=== PATIENT | female | born 1970 | race Caucasian/White ===

== ENCOUNTER → 2016-05-22 | Outpatient (CLI) | payer MEDICARE ==
--- NOTE | 2016-05-30 17:50 | WOMENS IMAGING REPORT ---
EXAM DESCRIPTION: BILAT DIAGNOSTIC MAMMO W/CAD; U/S BREAST UNILAT LIMITED COMPLETED DATE/TIME: 05/22/2016 10:15 am; 05/22/2016 11:10 am REASON FOR STUDY: N60.12, DIFUSE CYSTIC MASTOPATHY OF LEFT BREAST; LT BREAST PAIN N60.12 DIFFUSE CY STIC MASTOPATHY OF LEFT BREAST COMPARISON: Mammograms 02/22/2015 Breast ultrasound exams 02/12/2015, 08/20/2015 TECHNIQUE: Standard craniocaudal and mediolateral oblique views of each breast recorded using digita l acquisition. Left breast ultrasound was also performed LIMITATIONS: None. FINDINGS: Findings present which are benign by mammographic criteria. No suspicious masses, calcifi cations or architectural distortion. Scattered benign calcifications bilaterally Read with the assistance of CAD. [facility] - R2 Remedy Developer Version 9.2 Left breast ultrasound: Ultrasound of the left breast was performed. There are benign well-circumscribed anechoic cysts in t he left breast at the 12 o'clock position 15 mm in size, and in the left breast 3 o'clock 6 mm in siz e. These correlate with areas of breast pain. BREAST DENSITY: d. The breasts are extremely dense, which lowers the sensitivity of mammography. BIRAD: 2 BENIGN FINDING(S) RECOMMENDATION: ROUTINE SCREENING Please continue bilateral screening tomosynthesis given extremely dense fibroglandular tissue bilater ally. COMMENT: PATIENT NOTIFIED BY LETTER The [employer] recommends an annual screening mammogram for women aged 40 years or over. Each patient will receive a reminder prior to the anniversary date of her mammogram. The [employer] (ACR) has developed recommendations for screening MRI of the breast s in certain patient populations, to be used in conjunction with mammography. Breast MRI surveillanc e may be appropriate for women with more than 20% lifetime risk of developing breast cancer as deter mined by genetic testing, significant family history of the disease, or history of mantle radiation f or Hodgkins Disease. ACR Practice Guidelines 2008. TECHNICAL DOCUMENTATION: FINDING NUMBER: (1) ASSESSMENT: (1) JOB ID: [id number] [employer]- All Rights Reserved
--- NOTE | 2016-05-30 17:50 | WOMENS IMAGING REPORT ---
EXAM DESCRIPTION: BILAT DIAGNOSTIC MAMMO W/CAD; U/S BREAST UNILAT LIMITED COMPLETED DATE/TIME: 05/22/2016 10:15 am; 05/22/2016 11:10 am REASON FOR STUDY: N60.12, DIFUSE CYSTIC MASTOPATHY OF LEFT BREAST; LT BREAST PAIN N60.12 DIFFUSE CY STIC MASTOPATHY OF LEFT BREAST COMPARISON: Mammograms 02/22/2015 Breast ultrasound exams 02/12/2015, 08/20/2015 TECHNIQUE: Standard craniocaudal and mediolateral oblique views of each breast recorded using digita l acquisition. Left breast ultrasound was also performed LIMITATIONS: None. FINDINGS: Findings present which are benign by mammographic criteria. No suspicious masses, calcifi cations or architectural distortion. Scattered benign calcifications bilaterally Read with the assistance of CAD. [facility] - R2 Tugboat Dispatcher Version 9.2 Left breast ultrasound: Ultrasound of the left breast was performed. There are benign well-circumscribed anechoic cysts in t he left breast at the 12 o'clock position 15 mm in size, and in the left breast 3 o'clock 6 mm in siz e. These correlate with areas of breast pain. BREAST DENSITY: d. The breasts are extremely dense, which lowers the sensitivity of mammography. BIRAD: 2 BENIGN FINDING(S) RECOMMENDATION: ROUTINE SCREENING Please continue bilateral screening tomosynthesis given extremely dense fibroglandular tissue bilater ally. COMMENT: PATIENT NOTIFIED BY LETTER The [employer] recommends an annual screening mammogram for women aged 40 years or over. Each patient will receive a reminder prior to the anniversary date of her mammogram. The [employer] (ACR) has developed recommendations for screening MRI of the breast s in certain patient populations, to be used in conjunction with mammography. Breast MRI surveillanc e may be appropriate for women with more than 20% lifetime risk of developing breast cancer as deter mined by genetic testing, significant family history of the disease, or history of mantle radiation f or Hodgkins Disease. ACR Practice Guidelines 2008. TECHNICAL DOCUMENTATION: FINDING NUMBER: (1) ASSESSMENT: (1) JOB ID: [id number] [employer]- All Rights Reserved
== END ==
LOC: WI 15:41
PROVIDERS: ATTEND Physician Assistant Medical
DX: N60.12 Diffuse cystic mastopathy of left breast (principal)
CPT/HCPCS: 76642; G0204; 77066

== ENCOUNTER → 2016-08-24 | Outpatient (CLI) | payer MEDICARE ==
[2016-08-24 15:21] LABS: ABSOLUTE BASOPHILS # (AUTO) 0.1 10^3/uL (0.0-0.2); ABSOLUTE LYMPHOCYTES (AUTO) 1.8 10^3/uL (0.5-4.7); ABSOLUTE MONOCYTES (AUTO) 0.6 10^3/uL (0.1-1.4); ABSOLUTE NEUT (AUTO) 5.7 10^3/uL (1.7-8.2); BASOPHILS % (AUTO) 0.7 % (0-2); EOSINOPHILS % (AUTO) 0.6 % (0-6); HEMATOCRIT 39.3 % (36.0-47.0); HEMOGLOBIN 13.5 g/dL (12.0-15.5); HGB HCT DIFFERENCE 1.2; LYMPHOCYTES % (AUTO) 21.8 % (13-45); MEAN CORPUSCULAR HEMOGLOBIN 30.1 pg (27.0-33.4); MEAN CORPUSCULAR HGB CONC 34.2 g/dL (32.0-36.0); MEAN CORPUSCULAR VOLUME 88 fl (80-97); MONOCYTES % (AUTO) 6.8 % (3-13); RED BLOOD COUNT 4.47 10^6/uL (3.72-5.28); RED CELL DISTRIBUTION WIDTH 13.5 % (11.5-14.0); SEGMENTED NEUTROPHILS % (AUTO) 70.1 % (42-78); WHITE BLOOD COUNT 8.1 10^3/uL (4.0-10.5)
[2016-08-24 15:24] LABS: APPEARANCE,URINE SLIGHTLY-CLOUDY; BILIRUBIN,URINE NEGATIVE (NEGATIVE); GLUCOSE, URINE NEGATIVE (NEGATIVE); KETONES,URINE NEGATIVE (NEGATIVE); LEUKOCYTE ESTERASE,URINE NEGATIVE (NEGATIVE); NITRITE,URINE NEGATIVE (NEGATIVE); PROTEIN,URINE NEGATIVE (NEGATIVE); URINE SPECIFIC GRAVITY 1.006; UROBILINOGEN,URINE NEGATIVE mg/dL (<2.0)
[2016-08-24 15:28] LABS: PROTHROMBIN TIME 13.5 SEC (11.4-15.4)
[2016-08-24 15:29] LABS: PARTIAL THROMBOPLASTIN TIME 28.8 SEC (23.5-35.8)
== END ==
LOC: OD 14:28
PROVIDERS: ATTEND Pain Medicine Interventional Pain Medicine
DX: Z79.01 Long term (current) use of anticoagulants (principal); Z79.1 Long term (current) use of non-steroidal anti-inflammatories (NSAID)
CPT/HCPCS: 36415; 81001; 85025; 85610; 85730

== ENCOUNTER 2016-09-19 08:03 | Day surgery (SDC) | payer MEDICARE ==
[2016-09-15 12:13] LABS: HEMOGLOBIN 13.9 g/dL (12.0-15.5); HGB HCT DIFFERENCE 0.7; MEAN CORPUSCULAR HEMOGLOBIN 30.5 pg (27.0-33.4); MEAN CORPUSCULAR HGB CONC 33.8 g/dL (32.0-36.0); MEAN CORPUSCULAR VOLUME 90 fl (80-97); RED BLOOD COUNT 4.54 10^6/uL (3.72-5.28); WHITE BLOOD COUNT 5.5 10^3/uL (4.0-10.5)
[2016-09-15 12:17] LABS: PROTHROMBIN TIME 12.9 SEC (11.4-15.4)
[2016-09-15 13:33] LABS: APPEARANCE,URINE CLEAR; BILIRUBIN,URINE NEGATIVE (NEGATIVE); GLUCOSE, URINE NEGATIVE (NEGATIVE); KETONES,URINE NEGATIVE (NEGATIVE); LEUKOCYTE ESTERASE,URINE NEGATIVE (NEGATIVE); NITRITE,URINE NEGATIVE (NEGATIVE); PROTEIN,URINE NEGATIVE (NEGATIVE); URINE SPECIFIC GRAVITY 1.008; UROBILINOGEN,URINE NEGATIVE mg/dL (<2.0)
--- NOTE | 2016-09-15 13:46 | EKG REPORT ---
SEVERITY:- NORMAL ECG - SINUS RHYTHM : Confirmed by: Jerrica Ayoub 15-Sep-2016 13:45:10
[~2016-09-19 08:03] MED LIST: CEFAZOLIN 1 GM/D5W RTU 1 GM/50 ML RTUPB IV PRN; LACTATED RINGERS 1000 ML IV PRN; LIDOCAINE 0.5% INJ-PF (5 MG/ML) 50 ML SDV SUBCUT PRN
[2016-09-19] MEDS ORDERED: BUPIVACAINE HCL 0.25% /EPINEPHRINE INJ/PF 30 ML SDV ONE (08:26)
[2016-09-19] MEDS ORDERED: LIDOCAINE 1% INJ-PF (10 MG/ML) 30 ML SDV ONE ×2 (08:26→08:43)
[2016-09-19] MEDS ORDERED: SODIUM BICARBONATE 8.4% INJ 50 MEQ/50 ML DISP.SYRIN ONE (08:26)
[2016-09-19] MEDS ORDERED: FENTANYL CITRATE INJ/PF 100 MCG/2 ML AMPUL IV PRN ×3 (09:48)
[2016-09-19] MEDS ORDERED: MORPHINE SULFATE 10 MG/ML INJ IV PRN (09:48)
[2016-09-19] MEDS ORDERED: DIPHENHYDRAMINE HCL 50 MG/ML VIAL IV PRN (09:48)
[2016-09-19] MEDS ORDERED: OXYCODONE-ACETAMINOPHEN 5-325 MG TABLET PO PRN ×2 (09:48)
[2016-09-19] MEDS ORDERED: MEPERIDINE HCL/PF INJ 25 MG/1 ML DISP.SYRIN IV PRN (09:48)
[2016-09-19] MEDS ORDERED: PROMETHAZINE HCL INJ 25 MG/1 ML VIAL IV PRN ×2 (09:48)
[2016-09-19] MEDS ORDERED: MIDAZOLAM 2 MG/2 ML INJ ONE (10:25)
[2016-09-19] MEDS ORDERED: KETAMINE HCL INJ 500 MG/10 ML VIAL ONE (10:25)
[2016-09-19] MEDS ORDERED: PROPOFOL INJ 200 MG/20 ML VIAL IV ONE (10:26)
[2016-09-19] MEDS ORDERED: DEXMEDETOMIDINE INJ 80 MCG/20 ML VIAL IV ONE (10:26)
[2016-09-19] MEDS ORDERED: ACETAMINOPHEN 100 ML IV ONE (10:26)
[2016-09-19] MEDS ORDERED: MORPHINE SULFATE 10 MG/ML INJ ONE (10:27)
[2016-09-19] MEDS ORDERED: CEFAZOLIN INJ 1 GM VIAL ONE (12:11)
[2016-09-19] MEDS ORDERED: HYDROMORPHONE HCL 2 MG TABLET PO PRN (12:31)
[2016-09-19] MEDS ORDERED: ONDANSETRON HCL INJ/PF 4 MG/2 ML SDV IV PRN (12:32)
[2016-09-19] MEDS ORDERED: DEXAMETHASONE SOD PHOSPHATE INJ 4 MG/1 ML VIAL ONE (12:54)
[2016-09-19] MEDS ORDERED: METOCLOPRAMIDE HCL INJ/PF 10 MG/2 ML SDV ONE (12:54)
[2016-09-19] MEDS ORDERED: LIDOCAINE 2% INJ-PF (20 MG/ML) 10 ML AMPUL ONE (12:54)
[2016-09-19] MEDS ORDERED: ONDANSETRON HCL INJ/PF 4 MG/2 ML SDV ONE (12:54)
[2016-09-19] MEDS ORDERED: GLYCOPYRROLATE INJ 0.4 MG/2 ML VIAL ONE (12:54)
--- NOTE | 2016-09-19 13:03 | OPERATIVE REPORT E ---
Operative Report NAME: ROBIN FLOOD : 1970 AGE: 46Y DATE OF SURGERY: 09/19/2016 ROOM: PREOPERATIVE DIAGNOSIS: Lumbar radiculopathy. POSTOPERATIVE DIAGNOSIS: Lumbar radiculopathy. PROCEDURE PERFORMED: Permanent implant of percutaneous spinal cord stimulator leads and implantable pulse generator using the Medtronic system. SPECIMENS REMOVED: None. OPERATIVE FINDINGS: Dual octad leads placed from the top of T8 to the top of T10. ESTIMATED BLOOD LOSS: 5 mL. ANESTHESIA: Monitored anesthesia care with sedation. PREOPERATIVE ANTIBIOTICS: Ancef 1 gram given perioperatively. INTRAVENOUS FLUIDS: Balanced crystalloid solution 1 L. PRIMARY SURGEON: GONZALES MULLINS M.D. ELECTRIC ORGAN CHECKER: MARILYN BAUM M.D. OPERATIVE INDICATIONS: The patient is a 46-year-old female with severe lumbar radiculopathy and leg pain. As the patient underwent successful trial of percutaneous spinal cord stimulator system with excellent results, she opted to proceed with permanent implantation. The risks and benefits were discussed with the patient at length, including, but not limited to: Bleeding; bruising; infection; injury to nerves, arteries, veins; loss of bowel or bladder function; paralysis and potentially even . Additionally, it was discussed of the potential lumbar radiculopathy, lead migration, and failure for permanent implant to work as the trial did. The patient expressed understanding and agreed to proceed. OPERATIVE DETAIL: The patient was accompanied by Anesthesia to the operative suite, where she was placed in a prone position and all the pressure points were checked and padded. Standard ASA lines and monitors were applied. Sedation was provided and the patient was also given perioperative antibiotics, 1 gram of Ancef. The patient was prepped and draped in a sterile fashion using chlorhexidine gluconate solution, an Ioban drape, and a universal drape. Additionally, C-arm used for fluoroscopy was draped into the sterile field. The site for the planned midline incision was marked, as was the site for the right buttock incision for the implantable pulse generator. The skin was copiously anesthetized with 1% buffered lidocaine and deeper tissues were infiltrated with 0.25% Marcaine with 1:100,000 epinephrine. This was performed in both planned incision sites. Incision was made with a 15 blade scalpel in the midline and subsequently blunt and electrocautery dissection were utilized to expose the prevertebral fascia. Once this was exposed and adequate hemostasis was ensured, a tract was made with a 3.5 inch, 25-gauge spinal needle, which was planned for Tuohy placement into the epidural space. This was anesthetized with 1% buffered lidocaine. Subsequently, the Tuohy provided by the Medtronic kit was advanced under intermittent AP fluoroscopic guidance to the L1-2 interspace and loss of resistance was obtained to the epidural space using normal saline. After loss of resistance was obtained, the lead was advanced easily through the Tuohy needle. This was performed in the exact same fashion on the opposite side of the spinous process with both leads entered at the L1-2 interspace. Lateral fluoroscopy was used to confirm posterior placement of leads. The leads were advanced easily to the top of the T8 vertebral body with spanning to the top of the T10 vertebral body. Then, 0 Mers[address] was utilized to place a pursestring suture around the needle on both sides and an additional stay suture was placed with 0 Mersilene. The needles were removed over top of the leads and the pursestring suture was secured after the anchoring device provided by the Medtronic kit was placed over the anchor. The anchor was then tied to the pursestring suture and an additional suture was placed in the fascia, for which to tie the anchor. This was performed in the exact same fashion on the opposite anchor. At this juncture, attention was turned to the right buttock pocket, where incision was made using #15 blade scalpel and deep and blunt dissection were performed with adequate hemostasis assured. Once the pocket was created with sufficient space for the implantable pulse generator, tunneling was performed after anesthesia with 1% buffered lidocaine. The tunneling device provided in the Medtronic kit was tunneled from the midline incision to the buttock. The leads were then advanced through the tunneling device to the pocket. Care was taken to maintain directionality with leads placed in the appropriate ports in the implantable pulse generator. Once the leads were in the implantable pulse generator, they were secured utilizing the hex wrench provided in the kit. At this point, testing to ensure adequate impedances was performed and was found to be appropriate. Both incision sites were copiously irrigated with a dilute Betadine solution. Additionally, two 3-0 Vicryl sutures were utilized in the midline incision to secure the leads to the prevertebral fascia. Subsequently, skin closure was performed with 3-0 Vicryl sutures in an interrupted fashion in both the midline and over the buttock. The midline was also closed utilizing tonya and the buttock with Dermabond skin glue. The incision sites were infiltrated with 0.25% Bupivacaine with 1:100,000 epinephrine. The patient was accompanied by anesthesia staff to the anesthesia recovery unit in stable condition. She will be discharged to home and will have followup with [facility] within 24 hours. DICTATING PHYSICIAN: GONZALES MULLINS M.D. [id number] PHY#: [id number] ID: [id number] JOB#: [id number] ACCT: [id number] cc:GONZALES MULLINS M.D. >
[2016-09-19] MEDS: FENTANYL CITRATE INJ/PF 100 MCG/2 ML AMPUL ONE ×2 (13:13→13:15)
[2016-09-19] MEDS ORDERED: LORAZEPAM INJ 2 MG/1 ML VIAL ONE (13:21)
[2016-09-19] MEDS ORDERED: PROMETHAZINE HCL INJ 50 MG/1 ML VIAL IM ONE (13:30)
[2016-09-19 14:45] VITALS: BP 108/81
== END 2016-09-19 14:55 | disposition home or self-care (01) ==
LOC: OROUT 08:03
PROVIDERS: ATTEND Pain Medicine Interventional Pain Medicine
PROC: 00HU3MZ Insertion of Neurostimulator Lead into Spinal Canal, Percutaneous Approach (ICD-10-PCS; 2016-09-19)
PROC: 0JH70MZ Insertion of Stimulator Generator into Back Subcutaneous Tissue and Fascia, Open Approach (ICD-10-PCS; principal; 2016-09-19 10:00)
DX: M54.16 Radiculopathy, lumbar region (principal); E03.9 Hypothyroidism, unspecified; E78.5 Hyperlipidemia, unspecified; G30.9 Alzheimer's disease, unspecified; I20.9 Angina pectoris, unspecified; K21.9 Gastro-esophageal reflux disease without esophagitis; Z79.01 Long term (current) use of anticoagulants; Z88.2 Allergy status to sulfonamides; Z88.5 Allergy status to narcotic agent; Z79.899 Other long term (current) drug therapy; Z79.891 Long term (current) use of opiate analgesic
CPT/HCPCS: 63685; 63650; 93005; 36415 ×2; 84132; 85027; 85610; 85730; 81001; 71020; 72080; 93010; C1820; C1778; C1787; J2250; J3490 ×6; J0690 ×2; J1100; J3010; A9270; J2765; J2270; J2060; J2550; J2405; J2704; J0131; 300

== ENCOUNTER → 2016-09-26 | Outpatient (CLI) | payer MEDICARE ==
[2016-09-26 12:49] LABS: ABSOLUTE EOSINOPHILS # (AUTO) 0.1 10^3/uL (0.0-0.6); ABSOLUTE LYMPHOCYTES (AUTO) 0.8 10^3/uL (0.5-4.7); ABSOLUTE MONOCYTES (AUTO) 0.4 10^3/uL (0.1-1.4); ABSOLUTE NEUT (AUTO) 4.5 10^3/uL (1.7-8.2); BASOPHILS % (AUTO) 0.5 % (0-2); HEMATOCRIT 43.6 % (36.0-47.0); HEMOGLOBIN 14.5 g/dL (12.0-15.5); HGB HCT DIFFERENCE -0.1; LYMPHOCYTES % (AUTO) 13.6 % (13-45); MEAN CORPUSCULAR HEMOGLOBIN 29.4 pg (27.0-33.4); MEAN CORPUSCULAR HGB CONC 33.2 g/dL (32.0-36.0); MEAN CORPUSCULAR VOLUME 89 fl (80-97); MONOCYTES % (AUTO) 6.9 % (3-13); RED BLOOD COUNT 4.92 10^6/uL (3.72-5.28); RED CELL DISTRIBUTION WIDTH 13.1 % (11.5-14.0); WHITE BLOOD COUNT 5.7 10^3/uL (4.0-10.5)
--- NOTE | 2016-09-26 12:56 | RADIOLOGY REPORT (SQ) ---
EXAM DESCRIPTION: CHEST PA/LATERAL COMPLETED DATE/TIME: 09/26/2016 12:42 pm REASON FOR STUDY: SHORTNESS OF BREATH COMPARISON: 09/15/2016 EXAM PARAMETERS: NUMBER OF VIEWS: two views TECHNIQUE: Digital Frontal and Lateral radiographic views of the chest acquired. RADIATION DOSE: NA LIMITATIONS: none FINDINGS: LUNGS AND PLEURA: No opacities, masses or pneumothorax. No pleural effusion. MEDIASTINUM AND HILAR STRUCTURES: No masses or contour abnormalities. HEART AND VASCULAR STRUCTURES: Heart normal size. No evidence for failure. BONES: No acute findings. HARDWARE: Neural stimulator leads in the mid thoracic spine. OTHER: No other significant finding. IMPRESSION: NO SIGNIFICANT RADIOGRAPHIC FINDING IN THE CHEST. TECHNICAL DOCUMENTATION: JOB ID: [id number] [employer]- All Rights Reserved
--- NOTE | 2016-09-26 15:53 | RADIOLOGY REPORT (SQ) ---
EXAM DESCRIPTION: VENOUS BILATERAL LOWER COMPLETED DATE/TIME: 09/26/2016 3:42 pm REASON FOR STUDY: BLE PAIN R50.9 FEVER, UNSPECIFIED R06.02 SHORTNESS OF BREATH I82.409 ACUTE EMBO LISM AND THOMBOS UNSP DEEP VN UNSP LOWER E COMPARISON: None. TECHNIQUE: Dynamic and static chen scale and color images acquired of both lower extremity venous sy stems. Selected spectral images acquired with additional compression and augmentation maneuvers. Imag es stored on PACS. LIMITATIONS: None. FINDINGS: RIGHT LEG COMMON FEMORAL AND FEMORAL: Normal phasicity, compression and augmentation. No visualized echogenic m aterial on chen scale. No defects on color images. POPLITEAL: Normal compression and augmentation. No visualized echogenic material on chen scale. No de fects on color images. CALF VESSELS: Normal compression and augmentation. No visualized echogenic material on chen scale. No defects on color image. GSV AND SSV: Normal compression. No visualized echogenic material on chen scale. No defects on color images. ANY DEEP VENOUS INSUFFICIENCY: Not evaluated. ANY EVIDENCE OF POPLITEAL CYST: No. OTHER: No other significant finding. LEFT LEG COMMON FEMORAL AND FEMORAL: Normal phasicity, compression and augmentation. No visualized echogenic m aterial on chen scale. No defects on color images. POPLITEAL: Normal compression and augmentation. No visualized echogenic material on chen scale. No de fects on color images. CALF VESSELS: Normal compression and augmentation. No visualized echogenic material on chen scale. No defects on color images. GSV AND SSV: Normal compression. No visualized echogenic material on chen scale. No defects on color images. ANY DEEP VENOUS INSUFFICIENCY: Not evaluated. ANY EVIDENCE POPLITEAL CYST: No. OTHER: No other significant finding. IMPRESSION: NO EVIDENCE DVT OR SVT IN EITHER LEG. TECHNICAL DOCUMENTATION: JOB ID: [id number] [employer]- All Rights Reserved
== END ==
LOC: OD 12:19
PROVIDERS: ATTEND Pain Medicine Interventional Pain Medicine
DX: I82.409 Acute embolism and thrombosis of unspecified deep veins of unspecified lower extremity (principal); R50.9 Fever, unspecified; R06.02 Shortness of breath
CPT/HCPCS: 36415; 71020; 85025; 85379; 93970

== ENCOUNTER 2016-10-13 17:13 | Emergency (ER) | payer MEDICARE ==
[2016-10-13] MEDS ORDERED: HYDROMORPHONE HCL INJ/PF 2 MG/ML AMPULE IM ONE (18:13)
[2016-10-13] MEDS ORDERED: ONDANSETRON 4 MG TAB.RAPDIS PO ONE (18:13)
[2016-10-13] MEDS ORDERED: PROMETHAZINE HCL INJ 25 MG/1 ML VIAL IM ONE (18:14)
--- NOTE | 2016-10-13 18:16 | ER Document Report ---
ED Medical Screen (RME) - General Chief Complaint: Back Pain Stated Complaint: BACK PAIN Time Seen by Provider: 10/13/16 18:03 Notes: This 46-year-old female patient comes emergency room complaining of low back pain with nausea vomiting and diarrhea. She had a spinal stimulator placed 3 weeks ago and symptoms have gotten worse in the last 3 days. She had been trying Phenergan for nausea and it seemed to help but she is gotten to where she cannot keep it down any longer. She did not have diarrhea until after she had the spinal stimulator placed. She did in fact have narcotic induced constipation prior to that. She is on quite large doses of Dilaudid chronically. She states she has been unable to keep medication down for 3 days. I have greeted and performed a rapid initial assessment of this patient. A comprehensive ED assessment and evaluation of the patient, analysis of test results and completion of the medical decision making process will be conducted by additional ED providers. I have greeted and performed a rapid initial assessment of this patient. A comprehensive ED assessment and evaluation of the patient, analysis of test results and completion of the medical decision making process will be conducted by additional ED providers. TRAVEL OUTSIDE OF THE [place] IN LAST 30 DAYS: No - Related Data Allergies/Adverse Reactions: morphine [Morphine] Allergy (Mild, Verified 10/13/16 17:36) Sulfa (Sulfonamide Antibiotics) Allergy (Mild, Verified 10/13/16 17:36) Past Medical History - Social History Chew tobacco use (# tins/day): No Frequency of alcohol use: None Drug Abuse: None - Past Medical History Cardiac Medical History: Denies: Hx Coronary Artery Disease, Hx Heart Attack, Hx Hypertension Pulmonary Medical History: Denies: Hx Asthma, Hx Bronchitis, Hx COPD, Hx Pneumonia Neurological Medical History: Denies: Hx Cerebrovascular Accident, Hx Seizures Renal/ Medical History: Denies: Hx Peritoneal Dialysis Musculoskeltal Medical History: Denies Hx Arthritis Surgical Hx: Negative Past Surgical History: Reports: Hx Hysterectomy. Denies: Hx Pacemaker - Immunizations Hx Diphtheria, Pertussis, Tetanus Vaccination: Yes Physical Exam - Vital signs Vitals: Temp Pulse Resp BP Pulse Ox 97.9 F 96 24 H 104/63 98 10/13/16 17:36 10/13/16 17:36 10/13/16 17:36 10/13/16 17:36 10/13/16 17:36 Course - Vital Signs Vital signs: Temp Pulse Resp BP Pulse Ox 97.9 F 96 24 H 104/63 98 10/13/16 17:36 10/13/16 17:36 10/13/16 17:36 10/13/16 17:36 10/13/16 17:36
[2016-10-13 18:45] LABS: ABSOLUTE BASOPHILS # (AUTO) 0.1 10^3/uL (0.0-0.2); ABSOLUTE LYMPHOCYTES (AUTO) 1.5 10^3/uL (0.5-4.7); ABSOLUTE MONOCYTES (AUTO) 0.5 10^3/uL (0.1-1.4); ABSOLUTE NEUT (AUTO) 6.2 10^3/uL (1.7-8.2); BASOPHILS % (AUTO) 0.7 % (0-2); EOSINOPHILS % (AUTO) 0.5 % (0-6); HEMATOCRIT 43.6 % (36.0-47.0); HEMOGLOBIN 14.9 g/dL (12.0-15.5); HGB HCT DIFFERENCE 1.1; LYMPHOCYTES % (AUTO) 18.5 % (13-45); MEAN CORPUSCULAR HEMOGLOBIN 29.9 pg (27.0-33.4); MEAN CORPUSCULAR HGB CONC 34.2 g/dL (32.0-36.0); MEAN CORPUSCULAR VOLUME 88 fl (80-97); RED BLOOD COUNT 4.98 10^6/uL (3.72-5.28); RED CELL DISTRIBUTION WIDTH 12.9 % (11.5-14.0); SEGMENTED NEUTROPHILS % (AUTO) 74.3 % (42-78); WHITE BLOOD COUNT 8.4 10^3/uL (4.0-10.5)
[2016-10-13] MEDS ORDERED: PROMETHAZINE HCL INJ 50 MG/1 ML VIAL IM ONE (19:00)
[2016-10-13 19:02] LABS: ALANINE AMINOTRANSFERASE 36 U/L (9-52); ALBUMIN 4.6 g/dL (3.5-5.0); ALKALINE PHOSPHATASE 93 U/L (38-126); ANION GAP 15 (5-19); ASPARTATE AMINO TRANSFERASE 29 U/L (14-36); BILIRUBIN,DIRECT 0.3 mg/dL (0.0-0.4); BILIRUBIN,TOTAL 0.7 mg/dL (0.2-1.3); BLOOD UREA NITROGEN 10 mg/dL (7-20); CALCIUM 10.3 mg/dL (8.4-10.2); CARBON DIOXIDE 21 mmol/L (22-30); CHLORIDE 109 mmol/L (98-107); CREATININE RESULT 0.66 mg/dL (0.52-1.25); GLUCOSE 105 mg/dL (75-110); POTASSIUM 4.3 mmol/L (3.6-5.0); SODIUM 144.8 mmol/L (137-145)
--- NOTE | 2016-10-13 19:14 | RADIOLOGY REPORT (SQ) ---
EXAM DESCRIPTION: KUB/ABDOMEN (SINGLE VIEW) COMPLETED DATE/TIME: 10/13/2016 6:51 pm REASON FOR STUDY: diarrhea x 3 weeks, after chronic constipation COMPARISON: None. NUMBER OF VIEWS: One view. TECHNIQUE: Supine radiographic image of the abdomen acquired. LIMITATIONS: None. FINDINGS: BOWEL GAS PATTERN: Normal bowel gas pattern. No dilated loops. CALCIFICATIONS: No suspicious calcifications. SOFT TISSUES: No gross mass or suggestion of organomegaly. HARDWARE: Nerve stimulator. BONES: No acute fracture. No worrisome bone lesions. OTHER: No other significant finding. IMPRESSION: NO RADIOGRAPHIC EVIDENCE FOR ACUTE ABDOMINAL DISEASE. TECHNICAL DOCUMENTATION: JOB ID: [id number] [employer]- All Rights Reserved
--- NOTE | 2016-10-13 19:57 | ER Document Report ---
ED General Pain - General Mode of Arrival: Ambulatory Information source: Patient TRAVEL OUTSIDE OF THE [place] IN LAST 30 DAYS: No - HPI Onset: Other - Refer to HPI note Similar symptoms previously: No Recently seen / treated by doctor: No <KAYLA WITT - Last Filed: 10/13/16 22:15> <SUSANA BARNARD - Last Filed: 10/14/16 01:15> - General Chief Complaint: Back Pain Stated Complaint: BACK PAIN Time Seen by Provider: 10/13/16 18:03 Notes: Patient is a 46-year-old female presenting to the emergency department for low back pain, nausea, vomiting, and diarrhea. Patient had a spinal stimulator placed 3 weeks ago and patient states that she has increased pain and symptoms of the last 3 days. Patient states that she has not been able to keep down her pain medication which has caused her to be in more pain. Patient has been trying to take Phenergan for nausea along with her Dilaudid. Patient has not been able to keep her medications down for the last 3 days. Patient had narcotic induced constipation but now she has diarrhea. Patient denies any numbness, tingling, loss of power or gait. Patient also complains that she has not been able to eat a full meal. Patient also complains of some swelling to her hands and ankles over the last week but states that it has resolved. Patient is followed by Dr. Shelton, pain management. (KAYLA WITT) - Related Data Allergies/Adverse Reactions: morphine [Morphine] Allergy (Mild, Verified 10/13/16 17:36) Sulfa (Sulfonamide Antibiotics) Allergy (Mild, Verified 10/13/16 17:36) Past Medical History - General Information source: Patient - Social History Smoking Status: Never Smoker Cigarette use (# per day): No Chew tobacco use (# tins/day): No Frequency of alcohol use: None Drug Abuse: None Family History: None Patient has suicidal ideation: No Patient has homicidal ideation: No Past Surgical History: Reports: Hx Hysterectomy, Hx Orthopedic Surgery - Spinal stimulator placed September 2016 - Immunizations Hx Diphtheria, Pertussis, Tetanus Vaccination: Yes Hx Pneumococcal Vaccination: 02/04/14 <KAYLA WITT - Last Filed: 10/13/16 22:15> Review of Systems - Review of Systems Constitutional: No symptoms reported EENT: No symptoms reported Cardiovascular: No symptoms reported Respiratory: No symptoms reported Gastrointestinal: See HPI, Diarrhea, Nausea, Vomiting Genitourinary: No symptoms reported Female Genitourinary: No symptoms reported Musculoskeletal: See HPI, Back pain Skin: No symptoms reported Hematologic/Lymphatic: No symptoms reported Neurological/Psychological: No symptoms reported -: Yes All other systems reviewed and negative <KAYLA WITT - Last Filed: 10/13/16 22:15> Physical Exam <KAYLA WITT - Last Filed: 10/13/16 22:15> <SUSANA BARNARD - Last Filed: 10/14/16 01:15> - Vital signs Vitals: Temp Pulse Resp BP Pulse Ox 97.9 F 96 24 H 104/63 98 10/13/16 17:36 10/13/16 17:36 10/13/16 17:36 10/13/16 17:36 10/13/16 17:36 - Notes Notes: GENERAL: Alert, interacts well. No acute distress. HEAD: Normocephalic, atraumatic. EYES: Pupils equal, round, and reactive to light. Extraocular movements intact. ENT: Oral mucosa moist, tongue midline. NECK: Full range of motion. Supple. Trachea midline. LUNGS: Clear to auscultation bilaterally, no wheezes, rales, or rhonchi. No respiratory distress. HEART: Regular rate and rhythm. No murmurs, gallops, or rubs. BACK: Swelling beneath a well-healed surgical incision on the right buttocks with a firm area beneath consistent with placement of a spinal stimulator. No fluctuance, no erythema, no sign of infection. EXTREMITIES: Moves all 4 extremities spontaneously. No edema to the upper or lower extremities bilaterally, radial and dorsalis pedis pulses 2/4 bilaterally. No cyanosis. NEUROLOGICAL: Alert and oriented x3. Normal speech. PSYCH: Normal affect, normal mood. SKIN: Warm, dry, normal turgor. No rashes or lesions noted. (KAYLA WITT) Course - Laboratory Result Diagrams: 10/13/16 18:23 10/13/16 18:23 <KAYLA WITT - Last Filed: 10/13/16 22:15> - Laboratory Result Diagrams: 10/13/16 18:23 10/13/16 18:23 <SUSANA BARNARD - Last Filed: 10/14/16 01:15> - Re-evaluation Re-evalutation: 10/13/16 21:50 CBC shows no leukocytosis, there is slightly elevated platelets of 469, CMP shows only slight low CO2 21 otherwise unremarkable, KUB shows spinal stimulator in good position. And to severe dehydration. Patient is feeling better after Phenergan and Reglan and Benadryl. Patient is also likely in some amount of withdrawal from narcotics as she has been taking large doses of narcotics for several weeks to months at this time, as she is going to continue on this medication she was given a dose of Dilaudid here to treat her pain as well as her withdrawal. Patient is feeling better. Will be discharged home with prescription for Reglan as well as Phenergan suppositories. (SUSANA BARNARD) - Vital Signs Vital signs: Temp Pulse Resp BP Pulse Ox 97.8 F 81 16 101/63 99 10/13/16 22:12 10/13/16 22:12 10/13/16 22:12 10/13/16 22:12 10/13/16 22:12 - Laboratory Laboratory results interpreted by me: 10/13/16 10/13/16 18:23 18:23 Plt Count 469 H Chloride 109 H Carbon Dioxide 21 L Calcium 10.3 H - EKG Interpretation by Me Additional EKG results interpreted by me: 10/13/16 21:51 EKG shows sinus rhythm at a rate of 74, normal axis, normal intervals, no ST segment elevations or depressions, there are T-wave inversions noted in lead III as well as T-wave flattening in aVF which is nonspecific per my interpretation (SUSANA BARNARD) Discharge <KAYLA WITT - Last Filed: 10/13/16 22:15> <SUSANA BARNARD - Last Filed: 10/14/16 01:15> - Discharge Clinical Impression: Nausea vomiting and diarrhea, Acute narcotic withdrawal Spinal cord stimulator dysfunction Qualifiers: Encounter type: subsequent encounter Qualified Code(s): T85.192D - Other mechanical complication of implanted electronic neurostimulator of spinal cord electrode (lead), subsequent encounter Condition: Stable Disposition: HOME, SELF-CARE Prescriptions: Promethazine HCl [Phenergan 25 mg Supp.rect] 25 mg OR Q4HP PRN #12 supp.rect PRN Reason: Metoclopramide HCl [Reglan 10 mg Tablet] 10 mg PO Q6HP PRN #10 tablet PRN Reason: Referrals: SUSAN ZUNIGA PA-C [Primary Care Provider] - Follow up as needed Scribe Attestation: 10/14/16 01:15 I personally performed the services described in the documentation, reviewed and edited the documentation which was dictated to the scribe in my presence, and it accurately records my words and actions. (SUSANA BARNARD) Scribe Documentation - Scribe Written by Cheloe:: Rain Way, 10/13/2016 22:22 acting as scribe for :: Rosibel <KAYLA WITT - Last Filed: 10/13/16 22:15>
[2016-10-13] MEDS ORDERED: METOCLOPRAMIDE HCL INJ/PF 10 MG/2 ML SDV IM ONE (20:06)
[2016-10-13] MEDS ORDERED: DIPHENHYDRAMINE HCL 50 MG/ML VIAL IM ONE (20:06)
[2016-10-13] MEDS ORDERED: ACETAMINOPHEN 325 MG TABLET PO ONE (20:09)
[2016-10-13 22:17] VITALS: BP 101/63
--- NOTE | 2016-10-16 09:54 | EKG REPORT ---
SEVERITY:- BORDERLINE ECG - SINUS RHYTHM PROBABLE LEFT ATRIAL ABNORMALITY : Confirmed by: Jerrica Ayoub 16-Oct-2016 09:53:46
== END 2016-10-13 22:18 | disposition home or self-care (01) ==
LOC: ER 17:13
DX: T85.192D Other mechanical complication of implanted electronic neurostimulator of spinal cord electrode (lead), subsequent encounter (principal); R11.2 Nausea with vomiting, unspecified; F19.939 Other psychoactive substance use, unspecified with withdrawal, unspecified; M54.9 Dorsalgia, unspecified; M54.5 Low back pain; R19.7 Diarrhea, unspecified; Z79.899 Other long term (current) drug therapy
CPT/HCPCS: 93005; 99284; 96372; 36415; 85025; 80053; 74000; 93010; A9270 ×2; J1200; J2765; J1170; J2550; S0119

== ENCOUNTER → 2016-10-25 | Outpatient (CLI) | payer MEDICARE ==
[2016-10-25 11:19] LABS: HEMATOCRIT 42.9 % (36.0-47.0); HEMOGLOBIN 14.2 g/dL (12.0-15.5); HGB HCT DIFFERENCE -0.3; MEAN CORPUSCULAR HEMOGLOBIN 29.3 pg (27.0-33.4); MEAN CORPUSCULAR HGB CONC 33.1 g/dL (32.0-36.0); MEAN CORPUSCULAR VOLUME 89 fl (80-97); RED BLOOD COUNT 4.84 10^6/uL (3.72-5.28); RED CELL DISTRIBUTION WIDTH 13.8 % (11.5-14.0); WHITE BLOOD COUNT 5.7 10^3/uL (4.0-10.5)
[2016-10-25 11:44] LABS: ALANINE AMINOTRANSFERASE 42 U/L (9-52); ALBUMIN 4.4 g/dL (3.5-5.0); ALKALINE PHOSPHATASE 81 U/L (38-126); ANION GAP 13 (5-19); ASPARTATE AMINO TRANSFERASE 22 U/L (14-36); BILIRUBIN,DIRECT 0.4 mg/dL (0.0-0.4); BILIRUBIN,TOTAL 0.6 mg/dL (0.2-1.3); BLOOD UREA NITROGEN 6 mg/dL (7-20); CALCIUM 9.9 mg/dL (8.4-10.2); CARBON DIOXIDE 24 mmol/L (22-30); CHLORIDE 107 mmol/L (98-107); CREATININE RESULT 0.72 mg/dL (0.52-1.25); GLUCOSE 87 mg/dL (75-110); POTASSIUM 3.9 mmol/L (3.6-5.0); SODIUM 143.6 mmol/L (137-145); TOTAL PROTEIN 7.5 g/dL (6.3-8.2)
[2016-10-25 11:56] LABS: FREE T3 3.67 pg/mL (2.77-5.27)
[2016-10-25 12:52] LABS: THYROID STIMULATING HORMONE 6.56 uIU/mL (0.47-4.68)
== END ==
LOC: OD 10:33
PROVIDERS: ATTEND Specialist
DX: G40.89 Other seizures (principal); G35 Multiple sclerosis
CPT/HCPCS: 36415; 80053; 82607; 82746; 84439; 84443; 84481; 85027; 86038

== ENCOUNTER → 2016-11-20 | Outpatient (CLI) | payer MEDICARE ==
--- NOTE | 2016-11-20 14:51 | RADIOLOGY REPORT (SQ) ---
EXAM DESCRIPTION: MRI HEAD COMBO COMPLETED DATE/TIME: 11/20/2016 11:17 am REASON FOR STUDY: MULTIPLE SCLEROSIS/CONVULSIONS G35 MULTIPLE SCLEROSIS R56.9 UNSPECIFIED CONVULSI ONS COMPARISON: MRI brain 04/23/2011 TECHNIQUE: Multiplanar imaging includes noncontrasted T1, T2, FLAIR, diffusion with ADC map and post gadolinium contrast T1 sequences. Images stored on PACS. CONTRAST TYPE AND DOSE: 17 mL Multihance. RENAL FUNCTION: GFR > 60. LIMITATIONS: None. FINDINGS: ANATOMY: No anomalies. Normal vascular flow voids. Pituitary fossa normal. CSF SPACES: Normal in size and contour. No hemorrhage. CEREBRUM: Sulci and gyri normal in size and contour. Normal white matter signal on FLAIR imaging. No evidence of hemorrhage, mass, or extraaxial fluid collection. No abnormal enhancement post contrast. POSTERIOR FOSSA: No signal alteration. No hemorrhage. No edema, masses, or mass effect. Internal henry tory canals, cerebellopontine angles, mastoids normal. No enhancing lesions. No abnormal enhancement post contrast. DIFFUSION IMAGING: Negative for acute or subacute infarction. ORBITS: No masses. Globes normal. PARANASAL SINUSES: No fluid levels. Mucosa normal. OTHER: No other significant finding. IMPRESSION: NORMAL MRI OF THE BRAIN WITHOUT AND WITH INTRAVENOUS GADOLINIUM CONTRAST. EVIDENCE OF ACUTE STROKE: NO. TECHNICAL DOCUMENTATION: JOB ID: [id number]- All Rights Reserved
== END ==
LOC: RAD 08:44
PROVIDERS: ATTEND Specialist
DX: G35 Multiple sclerosis (principal); R56.9 Unspecified convulsions
CPT/HCPCS: 70553; A9577

== ENCOUNTER 2016-12-19 10:58 | Day surgery (SDC) | payer MEDICARE ==
[2016-12-15 10:01] LABS: HEMATOCRIT 42.5 % (36.0-47.0); HEMOGLOBIN 14.3 g/dL (12.0-15.5); HGB HCT DIFFERENCE 0.4; MEAN CORPUSCULAR HEMOGLOBIN 29.9 pg (27.0-33.4); MEAN CORPUSCULAR HGB CONC 33.6 g/dL (32.0-36.0); MEAN CORPUSCULAR VOLUME 89 fl (80-97); RED BLOOD COUNT 4.78 10^6/uL (3.72-5.28); RED CELL DISTRIBUTION WIDTH 12.9 % (11.5-14.0)
[2016-12-15 10:06] LABS: PROTHROMBIN TIME 12.8 SEC (11.4-15.4)
[2016-12-15 10:07] LABS: PARTIAL THROMBOPLASTIN TIME 29.4 SEC (23.5-35.8)
[2016-12-15 10:12] LABS: APPEARANCE,URINE CLEAR; BILIRUBIN,URINE NEGATIVE (NEGATIVE); GLUCOSE, URINE NEGATIVE (NEGATIVE); KETONES,URINE NEGATIVE (NEGATIVE); LEUKOCYTE ESTERASE,URINE NEGATIVE (NEGATIVE); NITRITE,URINE NEGATIVE (NEGATIVE); PROTEIN,URINE NEGATIVE (NEGATIVE); URINE SPECIFIC GRAVITY 1.006; UROBILINOGEN,URINE NEGATIVE mg/dL (<2.0)
--- NOTE | 2016-12-15 10:19 | RADIOLOGY REPORT (SQ) ---
EXAM DESCRIPTION: CHEST PA/LATERAL COMPLETED DATE/TIME: 12/15/2016 10:07 am REASON FOR STUDY: PRE OP COMPARISON: CT chest 12/11/2008 Chest films 09/15/2016, 09/26/2016 EXAM PARAMETERS: NUMBER OF VIEWS: two views TECHNIQUE: Digital Frontal and Lateral radiographic views of the chest acquired. RADIATION DOSE: NA LIMITATIONS: none FINDINGS: LUNGS AND PLEURA: No opacities, masses or pneumothorax. No pleural effusion. MEDIASTINUM AND HILAR STRUCTURES: No masses or contour abnormalities. HEART AND VASCULAR STRUCTURES: Heart normal size. No evidence for failure. BONES: No acute findings. HARDWARE: Electrodes over the dorsal aspect of the thoracic spinal canal OTHER: No other significant finding. IMPRESSION: NO SIGNIFICANT RADIOGRAPHIC FINDING IN THE CHEST. TECHNICAL DOCUMENTATION: JOB ID: [id number] [employer]- All Rights Reserved
--- NOTE | 2016-12-15 13:01 | EKG REPORT ---
SEVERITY:- NORMAL ECG - SINUS RHYTHM : Confirmed by: Jerrica Ayoub 15-Dec-2016 13:00:11
[~2016-12-19 10:58] MED LIST changes: +ONDANSETRON HCL INJ/PF 4 MG/2 ML SDV ONE
[2016-12-19] MEDS ORDERED: MIDAZOLAM 2 MG/2 ML INJ ONE ×2 (12:43→14:05)
[2016-12-19] MEDS ORDERED: FENTANYL CITRATE INJ/PF 100 MCG/2 ML AMPUL ONE ×2 (14:04→14:05)
[2016-12-19] MEDS ORDERED: LIDOCAINE 1% INJ-PF (10 MG/ML) 30 ML SDV ONE (14:05)
[2016-12-19] MEDS ORDERED: PROPOFOL INJ 200 MG/20 ML VIAL IV ONE (14:05)
[2016-12-19] MEDS ORDERED: SODIUM BICARBONATE 8.4% INJ 50 MEQ/50 ML DISP.SYRIN ONE (14:05)
[2016-12-19] MEDS ORDERED: BUPIVACAINE HCL 0.5%-EPI 1:200000 INJ/PF 30 ML VIAL ONE (14:06)
[2016-12-19] MEDS ORDERED: MEPERIDINE HCL/PF INJ 25 MG/1 ML DISP.SYRIN IV PRN (14:24)
[2016-12-19] MEDS ORDERED: PROMETHAZINE HCL INJ 25 MG/1 ML VIAL IV PRN ×2 (14:24)
[2016-12-19] MEDS ORDERED: DIPHENHYDRAMINE HCL 50 MG/ML VIAL IV PRN (14:24)
[2016-12-19] MEDS ORDERED: FENTANYL CITRATE INJ/PF 100 MCG/2 ML AMPUL IV PRN ×3 (14:24)
[2016-12-19] MEDS: FENTANYL CITRATE INJ/PF 100 MCG/2 ML AMPUL ONE ×2 (15:30→15:40)
[2016-12-19] MEDS: PROMETHAZINE HCL INJ 25 MG/1 ML VIAL ONE ×2 (15:45→15:50)
--- NOTE | 2016-12-19 15:53 | RADIOLOGY REPORT (SQ) ---
EXAM DESCRIPTION: NO CHG FLUORO; SPINE SINGLE VIEW COMPLETED DATE/TIME: 12/19/2016 3:29 pm REASON FOR STUDY: SPINAL STIMULATOR REMOVAL ASSISTED WITH FLUORO IN OR G89.4 CHRONIC PAIN SYNDROME Z79.01 CUSTODIAL (CURRENT) USE OF ANTICOAGULANTS COMPARISON: None. FLUOROSCOPY TIME: 0.1 minute 2 images saved to PACS. TECHNIQUE: Intra-operative images acquired during surgical procedure to evaluate progress. NUMBER OF IMAGES: 2 LIMITATIONS: None. FINDINGS: Images obtained from thoracic neurostimulator placement in the operating room. IMPRESSION: IMAGE(S) OBTAINED DURING PROCEDURE. COMMENT: Quality ID [id number]: Final reports for procedures using fluoroscopy that document radiation exp osure indices, or exposure time and number of fluorographic images (if radiation exposure indices are not available) Please consult full operative report of the attending physician for description of the procedure. TECHNICAL DOCUMENTATION: JOB ID: [id number] [employer]- All Rights Reserved
--- NOTE | 2016-12-19 15:53 | RADIOLOGY REPORT (SQ) ---
EXAM DESCRIPTION: NO CHG FLUORO; SPINE SINGLE VIEW COMPLETED DATE/TIME: 12/19/2016 3:29 pm REASON FOR STUDY: SPINAL STIMULATOR REMOVAL ASSISTED WITH FLUORO IN OR G89.4 CHRONIC PAIN SYNDROME Z79.01 PENITENTIARY (CURRENT) USE OF ANTICOAGULANTS COMPARISON: None. FLUOROSCOPY TIME: 0.1 minute 2 images saved to PACS. TECHNIQUE: Intra-operative images acquired during surgical procedure to evaluate progress. NUMBER OF IMAGES: 2 LIMITATIONS: None. FINDINGS: Images obtained from thoracic neurostimulator placement in the operating room. IMPRESSION: IMAGE(S) OBTAINED DURING PROCEDURE. COMMENT: Quality ID [id number]: Final reports for procedures using fluoroscopy that document radiation exp osure indices, or exposure time and number of fluorographic images (if radiation exposure indices are not available) Please consult full operative report of the attending physician for description of the procedure. TECHNICAL DOCUMENTATION: JOB ID: [id number] [employer]- All Rights Reserved
[2016-12-19] MEDS ORDERED: HYDROMORPHONE HCL 2 MG TABLET ONE (16:29)
--- NOTE | 2016-12-19 18:02 | OPERATIVE REPORT E ---
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 POSTOPERATIVE DIAGNOSIS: Failure of spinal cord stimulator implantable device. OPERATION: Explantation of spinal cord stimulator and implantable pulse generator. SURGEON: GONZALES MULLINS M.D. ANESTHESIA: Local with sedation. TISSUE REMOVED OR ALTERED: Implantable pulse generator and dual Octrode leads as well as anchoring system. COMPLICATIONS: None. ESTIMATED BLOOD LOSS: 5 mL. PERIOPERATIVE ANTIBIOTICS: 1 gram Ancef given perioperatively. OPERATIVE INDICATIONS: The patient is a 46-year-old female who previously underwent successful trial of spinal cord stimulation percutaneously. She opted to proceed with permanent implantation which was performed approximately 2 months ago. Unfortunately the postoperative course was complicated by a myriad of different symptoms including prominent olfactory hallucinations, visual disturbances, migraines, and upper extremities numbness and tingling. This happened in spite of the stimulator being off for the past month. However, the patient was quite convinced that this was causing the change in her symptoms. Given ongoing concerns and worsening symptoms as well as the patient's desire, we elected to explant the system. OPERATIVE DETAIL: The patient was taken to the operative suite accompanied by Anesthesia staff and positioned in the prone position. All pressure points were checked and padded. Standard ASA lines and monitors were applied. The patient was prepped and draped in a sterile fashion using chlorhexidine gluconate solution, Ioban, and a Caldwell drape. The previous incision sites over the implantable pulse generator and midline were marked and anesthetized with 1% buffered lidocaine after the timeout protocol was performed per [facility] standards. Deeper tissues were subsequently infiltrated with 0.25% Marcaine with 1:100,000 epinephrine. Incision was made using a 15-blade scalpel in the midline. Blunt and Bovie dissection then ensued to expose the dual Octrode leads and anchoring devices. The 0-Mersilene sutures around the anchoring devices were cut and removed and the leads both were removed with ease with tips intact. Attention was then turned to the right buttock pocket where incision was made, and the implantable pulse generator was delivered from the pocket site. Both incisions were copiously irrigated with dilute Betadine solution. The buttock pocket was abraded to allow for improved healing. Three #3-0 Vicryl sutures were placed to anchor the bottom to the top of the pocket. Closure was then performed in an interrupted fashion and with 3-0 Vicryl sutures. The buttock was further closed with Dermabond tape and glue, and the midline incision was stapled. The entire device was removed without incident. The patient was accompanied, in stable condition, to the Post-Anesthesia Recovery Suite by operating room staff. The patient will follow up for a wound check tomorrow. DICTATING PHYSICIAN: GONZALES MULLINS M.D. [id number] Y#: [id number] ID: [id number] JOB#: [id number] ACCT: [id number] cc:GONZALES MULLINS M.D. >
[2016-12-19 18:14] VITALS: BP 109/82
== END 2016-12-19 17:35 | disposition home or self-care (01) ==
LOC: OROUT 10:58
PROVIDERS: ATTEND Pain Medicine Interventional Pain Medicine
PROC: 0SBC4ZZ Excision of Right Knee Joint, Percutaneous Endoscopic Approach (ICD-10-PCS; 2016-12-19)
PROC: 0SBC4ZZ Excision of Right Knee Joint, Percutaneous Endoscopic Approach (ICD-10-PCS; 2016-12-19)
PROC: 0SBC4ZZ Excision of Right Knee Joint, Percutaneous Endoscopic Approach (ICD-10-PCS; principal; 2016-12-19 13:15)
DX: M23.203 Derangement of unspecified medial meniscus due to old tear or injury, right knee (principal); M23.200 Derangement of unspecified lateral meniscus due to old tear or injury, right knee; M94.20 Chondromalacia, unspecified site; G89.4 Chronic pain syndrome; E66.9 Obesity, unspecified; Z79.01 Long term (current) use of anticoagulants; Z79.899 Other long term (current) drug therapy; Z79.1 Long term (current) use of non-steroidal anti-inflammatories (NSAID); Z68.42 Body mass index [BMI] 45.0-49.9, adult
CPT/HCPCS: 93005; 36415 ×2; 84132; 85027; 85610; 85730; 81001; 71020; 72020; 93010; 29880; 29879; J2250; J3490 ×3; J0690; J3010; A9270; J2550; J2405; J2704; 1936